=== PATIENT | female | born 1980 | race Caucasian/White ===

== ENCOUNTER 2021-04-09 21:02 | Emergency (ER) | payer BC ==
[~2021-04-09] VITALS: Ht 167.6 cm; Wt 75.0 kg
[2021-04-09 21:35] LABS: BASOPHILS % (AUTO) 0.6 % (0-1); EOSINOPHILS # (AUTO) 0.2 X10'3 (0-0.9); EOSINOPHILS % (AUTO) 2.1 % (0-6); HEMATOCRIT 39.6 % (35.0-45.0); HEMOGLOBIN 13.6 g/dl (12.0-16.0); LYMPHOCYTES # (AUTO) 2.8 X10'3 (1.1-4.8); LYMPHOCYTES % (AUTO) 37.7 % (21-51); MEAN CORPUSCULAR HEMOGLOBIN 29.2 PG (27.0-31.0); MEAN CORPUSCULAR HGB CONC 34.3 g/dL (33.0-36.5); MEAN CORPUSCULAR VOLUME 85.1 FL (78-98); MEAN PLATELET VOLUME 7.6 FL (7.4-10.4); MONOCYTES # (AUTO) 0.6 X10'3 (0-0.9); MONOCYTES % (AUTO) 7.8 % (2-12); NEUTROPHILS # (AUTO) 3.8 X10'3 (1.8-7.7); NEUTROPHILS % (AUTO) 51.8 % (42-75); PLATELET COUNT 261 X10'3 (140-440); RED BLOOD COUNT 4.65 X10'6 (4.20-5.60); WHITE BLOOD COUNT 7.4 X10'3 (4.5-11.0)
[2021-04-09 21:56] LABS: ALANINE AMINOTRANSFERASE 18 U/L (12-78); ALBUMIN 3.8 G/DL (3.4-5.0); ALKALINE PHOSPHATASE 58 IU/L (46-116); ANION GAP 8 (8-16); ASPARTATE AMINO TRANSFERASE 11 U/L (10-37); BILIRUBIN,TOTAL 0.8 MG/DL (0.1-1.0); BLOOD UREA NITROGEN 20 MG/DL (7-18); BUN/CREATININE RATIO 27.8 (6.6-38.0); CALCIUM 8.6 MG/DL (8.5-10.1); CHLORIDE 104 MMOL/L (99-107); CREATININE 0.72 MG/DL (0.40-0.90); GLUCOSE 145 MG/DL (70-104); LIPASE 166 U/L (73-393); POTASSIUM 3.8 MMOL/L (3.5-5.1); SODIUM 142 MMOL/L (135-145); TOTAL CARBON DIOXIDE 30.5 MMOL/L (24-32); TOTAL PROTEIN 7.7 G/DL (6.4-8.2); eGFR 90 ML/MIN
[2021-04-09 22:31] LABS: CLARITY,URINE CLEAR (Clear); COLOR,URINE YELLOW (Yellow); GLUCOSE, URINE NEGATIVE (Neg); KETONES,URINE NEGATIVE (Neg); LEUKOCYTE ESTERASE ,URINE NEGATIVE (Neg); NITRITES, URINE NEGATIVE (Neg); OCCULT BLOOD,URINE LARGE (Neg); PH,URINE 5.5 (4.8-8.0); PROTEIN,URINE NEGATIVE (Neg); URINE HCG NEGATIVE (NEG); UROBILINOGEN,URINE 0.2 E.U/dL (0.2-1.0)
[2021-04-09 22:50] LABS: UA COLLECTION TYPE CLN CATCH MIDSTREAM
[2021-04-09 22:52] LABS: BACTERIA,URINE NONE SEEN /HPF (Neg); SQUAMOUS EPITHELIAL CELL,UR FEW /LPF (FEW); WBC,URINE 0-4 /HPF (0-4)
[2021-04-10] MEDS ORDERED: ondansetron 4mg rapidly disintigrating tab PO PRN (00:20)
[2021-04-10] MEDS ORDERED: ketorolac tromethamine 15mg/ml inj. IM PRN (00:20)
[2021-04-10] MEDS ORDERED: ondansetron/PF 4mg/2ml inj IV ONE (01:20)
[2021-04-10] MEDS ORDERED: KETO10TA2 PO (02:17)
[2021-04-10] MEDS ORDERED: TADA20TA PO (02:17)
[2021-04-10] MEDS ORDERED: HYDR-3965 PO (02:17)
[2021-04-10] MEDS ORDERED: ONDA4TAB6 PO (02:17)
[2021-04-10 02:38] VITALS: BP 111/42
== END 2021-04-10 02:39 | disposition home or self-care (01) ==
LOC: ER 21:04
DX: N20.1 Calculus of ureter (principal); N23 Unspecified renal colic; R11.0 Nausea; R31.9 Hematuria, unspecified; M54.89 Other dorsalgia; Z87.442 Personal history of urinary calculi; Z79.899 Other long term (current) drug therapy
CPT/HCPCS: 36415; 74176; 80053; 81001; 81025; 83690; 85025; 99284

== ENCOUNTER 2025-02-16 07:23 | Emergency (ER) | payer BC ==
[~2025-02-16] VITALS: Ht 167.6 cm; Wt 84.0 kg
[~2025-02-16 07:23] MED LIST: KETO10TA2 PO; ONDA4TAB6 PO; TADA20TA PO
[2025-02-16 07:29] VITALS: TEMP 98
[2025-02-16 07:58] LABS: BASOPHILS # (AUTO) 0.1 X10'3 (0-0.2); BASOPHILS % (AUTO) 0.9 % (0-1); EOSINOPHILS # (AUTO) 0.1 X10'3 (0-0.9); EOSINOPHILS % (AUTO) 1.1 % (0-6); HEMATOCRIT 40.3 % (35.0-45.0); HEMOGLOBIN 13.9 g/dl (12.0-16.0); LYMPHOCYTES # (AUTO) 1.8 X10'3 (1.1-4.8); LYMPHOCYTES % (AUTO) 33.7 % (21-51); MEAN CORPUSCULAR HEMOGLOBIN 28.9 PG (27.0-31.0); MEAN CORPUSCULAR HGB CONC 34.6 g/dL (33.0-36.5); MEAN CORPUSCULAR VOLUME 83.7 FL (78-98); MEAN PLATELET VOLUME 7.8 FL (7.4-10.4); MONOCYTES # (AUTO) 0.6 X10'3 (0-0.9); MONOCYTES % (AUTO) 10.9 % (2-12); NEUTROPHILS # (AUTO) 2.9 X10'3 (1.8-7.7); NEUTROPHILS % (AUTO) 53.4 % (42-75); PLATELET COUNT 286 X10'3 (140-440); RED BLOOD COUNT 4.81 X10'6 (4.20-5.60); RED CELL DISTRIBUTION WIDTH 12.9 % (11.5-14.5); WHITE BLOOD COUNT 5.5 X10'3 (4.5-11.0)
[2025-02-16 08:12] LABS: ALANINE AMINOTRANSFERASE 35 U/L (12-78); ALKALINE PHOSPHATASE 72 IU/L (46-116); ANION GAP 7 (8-16); ASPARTATE AMINO TRANSFERASE 22 U/L (10-37); BILIRUBIN,TOTAL 1.2 MG/DL (0.1-1.0); BLOOD UREA NITROGEN 16 MG/DL (7-18); BUN/CREATININE RATIO 19.8 (10.0-20.0); CALCIUM 8.6 MG/DL (8.5-10.1); CHLORIDE 102 MMOL/L (99-107); CREATININE 0.81 MG/DL (0.40-0.90); GLUCOSE 94 MG/DL (70-104); LIPASE 39 U/L (16-77); POTASSIUM 4.3 MMOL/L (3.5-5.1); SODIUM 137 MMOL/L (135-145); TOTAL CARBON DIOXIDE 27.9 MMOL/L (24-32); TOTAL PROTEIN 8.1 G/DL (6.4-8.2); eCRCL 84 ML/MIN; eGFR 77 ML/MIN
--- NOTE | 2025-02-16 09:58 | Physician Documentation ---
History of Present Illness Chief Complaint: Abdominal Pain Stated Complaint: LOWER ABDOMINAL PAIN Time Seen by MD: 09:41 OK to notify your PCP?: Yes Source: patient Mode of Arrival: POV Exam Limitations: no limitations HPI 44-year-old female with chief complaint lower abdominal pain pain started 48 hours ago in her suprapubic periumbilical area in states over the past 24 hours that has now radiated to her right lower quadrant. She does have a history of a kidney stone but states this is different from when she had a kidney stone she is concerned that it may be her appendix as it reminds her of when her had appendicitis. She has associated nausea no vomiting. She reports no appetite. She denies any changes in her bowel habits. No fever, chills, pain with urination, blood in urine, constipation, diarrhea. No prior abdominal surgeries. Medication Reconciliation Allergies: Coded Allergies: No Known Allergies (Unverified , 04/10/21) Scheduled Atomoxetine HCl (Atomoxetine HCl), 1 CAP PO QAM, (Reported) Ondansetron HCl (Ondansetron HCl), 1 TAB PO Q8H Oxycodone HCl (Oxycodone HCl), 1 TAB PO BID Tamsulosin Hcl* (Flomax*), 1 CAP PO DAILY Discontinued Medications Ketorolac Tromethamine (Ketorolac Tromethamine), 1 TAB PO Q8H Discontinued Reason: patient no longer taking Ondansetron Hcl (Zofran), 1 TAB PO Q8H Discontinued Reason: patient no longer taking Tadalafil (Cialis), 1 TAB PO DAILY Discontinued Reason: ADR (Adverse Drug Rxn) Past Medical History Past Medical History: Kidney Stones Past Surgical History: no surgical history Alcohol Use: None Drug Use: none Review of Systems All Other Systems at this time: Reviewed and Negative Physical Exam Vital Signs: Temperature: 98.0, Heart Rate: 90, Respiratory Rate: 18, BP: 125/70, Pulse Oximetry: 100, Weight: 83.950 Oxygen Flow Rate: 0 Physical Exam GENERAL: Alert, no acute distress. HEENT: NCAT, EOMI, PERRL, normal oropharynx, moist oral mucosa. NECK: Supple, trachea midline. CARDIAC: Regular rate and rhythm, no murmurs, rubs, or gallops. RESPIRATORY: Equal breath sounds, clear to auscultation bilaterally, no respiratory distress. GASTROINTESTINAL: Non distended, soft, positive right lower quadrant tenderness, No guarding or rebound. MUSCULOSKELETAL: Normal range of motion, nontender, no swelling. Normal gait. NEUROLOGICAL: Awake, alert, and oriented x 3. SKIN: Warm/dry, no pallor, no rash. PSYCH: Alert and appropriate. Affect congruent with mood. Speech is clear. Good eye contact. Progress Results/Orders Results/Orders Orders - GEORGE ROY Normal Saline Bolus (02/16/25 09:55) Ct Abdomen Pelvis (02/16/25 09:54) Vital Signs 02/16/25 07:29 Temp 98.0 Pulse 90 Resp 18 B/P (MAP) 125/70 Pulse Ox 100 O2 Flow Rate 0 Laboratory Tests Test 02/16/25 07:48 White Blood Count 5.5 Red Blood Count 4.81 Hemoglobin 13.9 Hematocrit 40.3 Mean Corpuscular Volume 83.7 Mean Corpuscular Hemoglobin 28.9 Mean Corpuscular Hemoglobin Concent 34.6 Red Cell Distribution Width 12.9 Platelet Count 286 Mean Platelet Volume 7.8 Neutrophils (%) (Auto) 53.4 Lymphocytes (%) (Auto) 33.7 Monocytes (%) (Auto) 10.9 Eosinophils (%) (Auto) 1.1 Basophils (%) (Auto) 0.9 Neutrophils # (Auto) 2.9 Lymphocytes # (Auto) 1.8 Monocytes # (Auto) 0.6 Eosinophils # (Auto) 0.1 Basophils # (Auto) 0.1 CBC Comment Sodium Level 137 Potassium Level 4.3 Chloride Level 102 Carbon Dioxide Level 27.9 Anion Gap 7 L Blood Urea Nitrogen 16 Creatinine 0.81 Estimated GFR/1.73 m2 77 BUN/Creatinine Ratio 19.8 Glucose Level 94 Calcium Level 8.6 Total Bilirubin 1.2 H Aspartate Amino Transf (AST/SGOT) 22 Alanine Aminotransferase (ALT/SGPT) 35 Alkaline Phosphatase 72 Total Protein 8.1 Albumin 4.0 Globulin 4.1 Albumin/Globulin Ratio 1.0 L Lipase 39 Chemistry Comments Medical Decision Making Differential Dx:Considerations: Include: AAA, -Complete, - Incomplete, -Inevitable, -Missed, -Threatened, Abruptio placentae, Angina/AZ, Aortic dissection, Appendicitis, Bowel obstruction, Cholangitis, Cholelithasis, Constipation, Diverticular disease, Esophageal rupture, Esophagitis, Gastritis/PUD, Gastroenteritis, GI hemorrhage, Hernia, Hepatitis, Inflammatory BD, Ischemic bowel, Ovarian cyst/torsion, Pancreatitis, PID, Porphyria, Trauma, intraabdominal, Urinary obstruction, Urinary tract infection, Urolithiasis, Other Additional Comments Labs are unremarkable we discussed risks and benefits of a CT scan including the radiation associated with the CT scan. Patient shows good understanding, but due to her pain level and symptoms feels that the benefits outweigh the risks. Patient declined any medication for pain at least at the time of initial evaluation. Departure Impression: Primary Impression: RLQ abdominal pain Additional Impression: Nausea without vomiting Condition: Stable Discharge Instructions: Kidney Stones, [id number] Additional Instructions: CALL DR. DEGROOT TO SCHEDULE FOLLOW UP RETURN TO ER IF FEVER, CHILLS, VOMITING, UNCONTROLLED PAIN MEDICATIONS SENT TO PHARMACY STONE NOT VISIBLE ON KUB XRAY THUS UNLIKELY CALCIUM STONE. Exam: CT CT ABDOMEN PELVIS W/ IV CONTRAST History: abdominal pain TECHNIQUE: Multiple contiguous axial CT images of the abdomen and pelvis were obtained with intravenous contrast. The images were reformatted to generate coronal and sagittal reconstructions. 100 cc of Omnipaque 350 contrast was injected intravenously. All CT scans at this medical facility are performed using dose modulation techniques as appropriate to a performed exam including the following:Automated exposure control was utilized; adjustment of the MA and/or KV according to patient size; and use of iterative reconstruction technique. Radiation Dose Information: CT Dose: CTDI volume is 18 mGy. Dose-length product is 913 mGy*cm Comparison: None FINDINGS: There is a 5 mm calculus in the proximal right ureter, just distal to the UPJ. There is [id number] right hydroureteronephrosis. There is no evidence of left nephrolithiasis or hydronephrosis. The liver, gallbladder, pancreas, adrenal glands, and spleen appear within normal limits. There is no evidence of abdominal lymphadenopathy. There is no free fluid or free air. The stomach grossly appears unremarkable. The small and large bowel loops demonstrate normal caliber and distribution. A normal appearing appendix is seen in the right lower quadrant abdomen. The abdominal aorta and IVC appear within normal limits. The bladder appears within normal limits the degree of distention. A retroverted uterus grossly appears unremarkable. There is no evidence of a pelvic mass or lymphadenopathy. There is no free fluid collection. Lung bases are clear. There is no acute osseous abnormality. IMPRESSION: 1. 5 mm calculus in the proximal right ureter, just distal to the UPJ. There is [id number] right hydroureteronephrosis. Referrals: NO PRIMARY CARE PROVIDER (PCP) DAYANA DEGROOT MD Prescriptions Tamsulosin Hcl* (Flomax*) 0.4 Mg Cap.sr.24h 1 CAP PO DAILY for 30 Days, #30 CAP Prov: GEROGE ROY 02/16/25 Ondansetron HCl (Ondansetron HCl) 8 Mg Tablet 1 TAB PO Q8H for nausea/vomiting for 10 Days, #30 TAB 0 Refills Prov: GEORGE ROY 02/16/25 Oxycodone HCl (Oxycodone HCl) 10 Mg Tablet.orl 1 TAB PO BID for 7 Days, #14 TAB dx: kidney stone n20.0 Prov: GEORGE ROY 02/16/25 Education Educated: Patient Educated regarding: diagnosis, treatment, need for follow up Signature Scribe Signature: x Attestation: x GEORGE ROY February 16, 2025 09:57
[2025-02-16] MEDS ORDERED: ATOM10CA2 PO (10:13)
[2025-02-16] MEDS: normal saline 1000ML IV soln IVB ONE (10:13)
[2025-02-16 10:15] LABS: URINE HCG NEGATIVE (NEG)
[2025-02-16 10:16] LABS: BILIRUBIN,URINE NEGATIVE (Neg); CLARITY,URINE CLOUDY (Clear); COLOR,URINE YELLOW (Yellow); GLUCOSE, URINE NEGATIVE (Neg); KETONES,URINE NEGATIVE (Neg); LEUKOCYTE ESTERASE ,URINE NEGATIVE (Neg); NITRITES, URINE NEGATIVE (Neg); OCCULT BLOOD,URINE LARGE (Neg); PH,URINE 7.5 (4.8-8.0); PROTEIN,URINE NEGATIVE (Neg); UROBILINOGEN,URINE 0.2 E.U/dL (0.2-1.0)
[2025-02-16 10:17] LABS: UA COLLECTION TYPE CLN CATCH MIDSTREAM
[2025-02-16 10:23] LABS: BACTERIA,URINE FEW /HPF (Neg); MUCUS STRANDS NONE SEEN /LPF (Neg); RBC,URINE TNTC /HPF (0-2); SQUAMOUS EPITHELIAL CELL,UR FEW /LPF (FEW); WBC,URINE 0-4 /HPF (0-4)
[2025-02-16] MEDS ORDERED: iohexol 300mg/ml 100ml inj. ONE (10:32)
--- NOTE | 2025-02-16 11:29 | RADIOLOGY REPORT ---
Exam: CT CT ABDOMEN PELVIS W/ IV CONTRAST History: abdominal pain TECHNIQUE: Multiple contiguous axial CT images of the abdomen and pelvis were obtained with intraveno us contrast. The images were reformatted to generate coronal and sagittal reconstructions. 100 cc of Omnipaque 350 contrast was injected intravenously. All CT scans at this medical facility are performed using dose modulation techniques as appropriate t o a performed exam including the following:Automated exposure control was utilized; adjustment of the MA and/or KV according to patient size; and use of iterative reconstruction technique. Radiation Dose Information: CT Dose: CTDI volume is 18 mGy. Dose-length product is 913 mGy*cm Comparison: None FINDINGS: There is a 5 mm calculus in the proximal right ureter, just distal to the UPJ. There is nuyt-gw-hzoox ate right hydroureteronephrosis. There is no evidence of left nephrolithiasis or hydronephrosis. The liver, gallbladder, pancreas, adrenal glands, and spleen appear within normal limits. There is no evidence of abdominal lymphadenopathy. There is no free fluid or free air. The stomach grossly appears unremarkable. The small and large bowel loops demonstrate normal caliber and distribution. A normal appearing appendix is seen in the right lower quadrant abdomen. The abdominal aorta and IVC appear within normal limits. The bladder appears within normal limits the degree of distention. A retroverted uterus grossly appea rs unremarkable. There is no evidence of a pelvic mass or lymphadenopathy. There is no free fluid col lection. Lung bases are clear. There is no acute osseous abnormality. IMPRESSION: 1. 5 mm calculus in the proximal right ureter, just distal to the UPJ. There is [id number] righ t hydroureteronephrosis. HS:Y
[2025-02-16] MEDS ORDERED: TAMS-55 PO (11:42)
[2025-02-16] MEDS ORDERED: OXYC-964 PO (11:42)
[2025-02-16] MEDS ORDERED: ONDA-104 PO (11:42)
[2025-02-16 12:15] VITALS: BP 135/64; PULSE 67; RESP 16; O2SAT 97
--- NOTE | 2025-02-16 12:15 | RADIOLOGY REPORT ---
Exam: DI ABDOMEN,SINGLE VIEW(KUB) Indication: KIDNEY STONE Comparison: None Technique: 2 radiographic views of the abdomen. Findings: Excreted contrast in the bilateral urinary tract. Moderate volume colonic stool. Contrast in the urinary bladder. Moderate volume colonic stool. Nonobstructive bowel gas pattern noted. There is no definite evidence for pneumoperitoneum. No abnormal calcifications noted. Impression: Nonobstructive bowel gas pattern noted.
== END 2025-02-16 12:51 | disposition home or self-care (01) ==
LOC: ER 07:24
DX: R10.31 Right lower quadrant pain (principal); R11.0 Nausea; Z87.442 Personal history of urinary calculi; Z79.899 Other long term (current) drug therapy
CPT/HCPCS: 36415; 74018; 74177; 80053; 81001; 81025; 83690; 85025; 96360; 96361; 99285; J7030; Q9967